=== PATIENT | male | born 1995 | race Caucasian/White ===

== ENCOUNTER 2016-11-11 23:38 | Emergency (ER) | payer MEDICAID ==
[2016-11-12] MEDS ORDERED: HYDROCODONE/ACETAMINOPHEN 5-325 MG 6 TAB/DSPK PO PRN (02:52)
[2016-11-12] MEDS ORDERED: PREDNISONE 20 MG TABLET PO ONE (02:52)
--- NOTE | 2016-11-12 02:58 | ER Document Report ---
ED General - General Chief Complaint: Rash Stated Complaint: RASH Time Seen by Provider: 11/12/16 02:42 Notes: Patient is a 21-year-old male who presents with complaint of a rash. He has had the rash for several months now. Several months ago his doctor started him on prednisone. The rash went away for approximately a month and then came back. It is gradually worsening. He says the rash is tender to touch. Does not itch. He has had no fevers. No joint swelling. No vomiting. No systemic symptoms. Takes no medications. He has no chronic medical problems. He does have an appointment with a prescription benefit specialist in December. TRAVEL OUTSIDE OF THE [place] IN LAST 30 DAYS: No - Related Data Allergies/Adverse Reactions: No Known Allergies Allergy (Unverified 05/27/12 13:50) Past Medical History - Social History Smoking Status: Unknown if Ever Smoked Frequency of alcohol use: None Drug Abuse: None Family History: Reviewed & Not Pertinent - Past Medical History Cardiac Medical History: Denies: Hx Coronary Artery Disease, Hx Heart Attack, Hx Hypertension Pulmonary Medical History: Reports: Hx Asthma - as young child Denies: Hx Bronchitis, Hx COPD, Hx Pneumonia Neurological Medical History: Denies: Hx Cerebrovascular Accident, Hx Seizures Renal/ Medical History: Denies: Hx Peritoneal Dialysis Musculoskeltal Medical History: Denies Hx Arthritis Past Surgical History: Denies: Hx Pacemaker - Immunizations Hx Diphtheria, Pertussis, Tetanus Vaccination: Yes Review of Systems - Review of Systems Notes: My Normal Review Basic REVIEW OF SYSTEMS: CONSTITUTIONAL : Denies fever, chills, or sweats. Denies recent illness. EENT: Denies eye, ear, throat, or mouth pain or symptoms. Denies nasal or sinus congestion. CARDIOVASCULAR: Denies chest pain. RESPIRATORY: Denies cough, cold, or chest congestion. Denies shortness of breath, difficulty breathing, or wheezing. GASTROINTESTINAL: Denies abdominal pain. Denies nausea, vomiting, or diarrhea. Denies constipation. Last BM: MUSCULOSKELETAL: Denies neck or back pain or joint pain or swelling. SKIN: Rash NEUROLOGICAL: Denies altered mental status or loss of consciousness. Denies headache. Denies weakness or paralysis or loss of use of either side. Denies problems with gait or speech. Denies sensory or motor loss. ALL OTHER SYSTEMS REVIEWED AND NEGATIVE. Physical Exam - Vital signs Vitals: Temp Pulse Resp BP Pulse Ox 98.7 F 122 H 16 149/107 H 97 11/12/16 00:03 11/12/16 00:03 11/12/16 00:03 11/12/16 00:03 11/12/16 00:03 - Notes Notes: General Appearance: Well nourished, alert, cooperative, no acute distress, no obvious discomfort. Well appearing. Vitals: reviewed, See vital signs table. Head: no swelling or tenderness to the head Eyes: PERRL, EOMI, Conjuctiva clear Mouth: No decreasd moisture Throat: No tonsillar inflammation, No airway obstruction, No lymphadenopathy Neck: Supple, no neck tenderness, No thyromegaly Lungs: No wheezing, No rales, No rhonci, No accessory muscle use, good air exchange bilaterally. Heart: Normal rate, Regular rythm, No murmur, no rub Abdomen: Normal BS, soft, No rigidity, No abdominal tenderness, No guarding, no rebound, no abdominal masses, no organomegaly Extremities: strength 5/5 in all extremities, good pulses in all extremities, no swelling or tenderness in the extremities, no edema. Skin: Patient has a rash over majority of her body. It does not involve mucous membranes. It does not involve the genitalia. It does involve the extremities , face, and torso. Rash is erythematous papules and macules that have a scaly type appearance. They are completely blanchable. They are slightly tender to palpation. Neuro: speech clear, oriented x 3, normal affect, responds appropriately to questions. Course - Vital Signs Vital signs: Temp Pulse Resp BP Pulse Ox 98.7 F 119 H 16 152/95 H 98 11/12/16 00:03 11/12/16 00:04 11/12/16 00:03 11/12/16 00:04 11/12/16 00:04 - EKG Interpretation by Me Additional EKG results interpreted by me: 11/12/16 02:58 EKG is reviewed and interpreted by me. EKG shows normal sinus rhythm with rate of [address] segment elevation or depression. No ischemic T-wave inversions. NH interval, QRS duration, QTc intervals are within normal range. No old EKG available for comparison. - Transfer of Care Notes: I do not know the exact cause of the patient's rash. The rash is completely blanchable. Response to steroids per his history. He does have upcoming appointment with the prescription benefit specialist. I will place him back on tapering steroids. He has no systemic symptoms. I feel he is safe to be discharged home. I encouraged him return to ER immediately if he develops any systemic symptoms, fevers, pain, abdominal pain, vomiting, or if he feels unwell. Patient agrees with plan will be discharged home. Also encouraged him to call other dermatology offices to see if they can get him in sooner. I did give him the numbers to the dermatology offices in [place]. 11/12/16 03:52 Dictation of this chart was performed using voice recognition software; therefore, there may be some unintended grammatical errors. Discharge - Discharge Clinical Impression: Rash Condition: Good Disposition: HOME, SELF-CARE Instructions: Oral Narcotic Medication ([facility]) Additional Instructions: Please take the medications as prescribed. Please call other dermatologists such as ones in towns nearby to see if they can get you in sooner. Please return to the ER immediately if you develop fevers, joints swelling, difficulty breathing, vomiting, or feel unwell. Dermatologists in [place]: Dr. Nicholas: [phone] [facility]: [phone] [facility]: [phone] Prescriptions: Prednisone 10 mg PO ASDIR #42 tablet
[2016-11-12 04:47] VITALS: BP 132/96
== END 2016-11-12 04:47 | disposition home or self-care (01) ==
LOC: ER 23:38
DX: R21 Rash and other nonspecific skin eruption (principal)
CPT/HCPCS: 99282; J7512

== ENCOUNTER 2018-06-28 15:25 | Emergency (ER) | payer SELFPAY ==
[2018-06-28] MEDS ORDERED: NORMAL SALINE 1000 ML 1,000 ML IV ONE (15:54)
--- NOTE | 2018-06-28 15:59 | ER Document Report ---
ED General - General Stated Complaint: SEIZURE TRAVEL OUTSIDE OF THE [place] IN LAST 30 DAYS: No - HPI Notes: Patient is a 22-year-old male with a history of seizure disorder emergency department after having 2 seizures while at work today. Patient states that he does not take any medicines for seizures and does not believe in any medications. Patient does smoke marijuana on occasion. He did have a beer and some whiskey last evening. Patient states he has otherwise been able to eat and drink without any difficulties. He is urinating normally and having normal bowel movements. Patient seizures were witnessed the first 1 by a coworker and the second by his significant other. Significant other states that his seizures have been the same as before and he does have some tonic-clonic behavior with him. He was assisted to the ground both times. He did have a brief postictal phase for a few minutes where he was confused, but states that he feels back to normal and has no other concerns or complaints. Denies any drug allergies. Patient states that his seizures started a couple years ago when he was doing LSD, but has not been using any miscellaneous drugs aside from marijuana. Patient states that his last seizure was about 8 months ago. No other concerns or complaints. Denies any headache, fever, head injury, neck pain, changes in vision/speech/hearing, URI, sore throat, chest pain, palpitations, syncope, cough, shortness of breath, wheeze, dyspnea, abdominal pain, nausea/vomiting/diarrhea, urinary retention, dysuria, hematuria, loss of control of bowel or bladder, numbness/tingling, saddle anesthesia, muscle paralysis/weakness, or rash. - Related Data Allergies/Adverse Reactions: No Known Allergies Allergy (Unverified 05/27/12 13:50) Past Medical History - Social History Smoking Status: Current Every Day Smoker Chew tobacco use (# tins/day): No Frequency of alcohol use: Heavy Drug Abuse: Marijuana Family History: Reviewed & Not Pertinent Patient has suicidal ideation: No Patient has homicidal ideation: No - Past Medical History Cardiac Medical History: Denies: Hx Coronary Artery Disease, Hx Heart Attack, Hx Hypertension Pulmonary Medical History: Reports: Hx Asthma - as young child Denies: Hx Bronchitis, Hx COPD, Hx Pneumonia Neurological Medical History: Denies: Hx Cerebrovascular Accident, Hx Seizures Renal/ Medical History: Denies: Hx Peritoneal Dialysis Musculoskeletal Medical History: Denies Hx Arthritis Past Surgical History: Denies: Hx Pacemaker - Immunizations Hx Diphtheria, Pertussis, Tetanus Vaccination: Yes Review of Systems - Review of Systems -: Yes All other systems reviewed and negative Physical Exam - Vital signs Vitals: Temp BP Pulse Ox 98.0 F 111/75 98 06/28/18 15:28 06/28/18 15:28 06/28/18 15:28 - Notes Notes: PHYSICAL EXAMINATION: GENERAL: Well-appearing, well-nourished and in no acute distress. A&Ox4. Answers questions appropriately. HEAD: Atraumatic, normocephalic. Non-tender. EYES: Pupils equal round and reactive to light, extraocular movements intact, sclera anicteric, conjunctiva are normal. No nystagmus. vis devine intact. ENT: EAC clear b/l. TM's intact b/l without erythema, fluid, or perforation. Nares patent and without discharge. oropharynx clear without exudates. No tonsilar hypertrophy or erythema. Moist mucous membranes. No sinus tenderness. NECK: Normal range of motion, supple without lymphadenopathy. No rigidity/meningismus. No midline tenderness. LUNGS: Breath sounds clear to auscultation bilaterally and equal. No wheezes rales or rhonchi. HEART: Regular rate and rhythm without murmurs, rubs, gallops. ABDOMEN: Soft, nontender, nondistended abdomen. No guarding, no rebound. Normal bowel sounds present. No CVA tenderness bilaterally. Musculoskeletal: Ext's b/l: FROM to passive/active. Strength 5+/5. No deficits noted. No bony tenderness of extremities. Extremities: No cyanosis, clubbing, or edema b/l. Peripheral pulses 2+. Capillary refill less than 2 seconds. NEUROLOGICAL: NIH 0. GCS 15. Cranial nerves grossly intact. Normal speech. Normal sensory, motor exams. Reflexes 2+ b/l. CECILY's negative. Pronator drift negative. Heel/wright, finger/nose wnl. PSYCH: Normal mood, normal affect. SKIN: Warm, Dry, normal turgor, no rashes or lesions noted. Course - Re-evaluation Re-evalutation: 06/28/18 17:18 Patient is an afebrile, well-hydrated, 20-year-old male who presents to the emergency department with seizure and known seizure disorder who is at baseline and not postictal. Vitals are acceptable without significant tachycardia, tachypnea, or hypoxia. PE is otherwise unremarkable for any focal neurological deficits. Patient was given fluids. CBC, CMP, magnesium are acceptable. Patient has been tolerating p.o. is nontoxic-appearing. Patient has refused any medicines as he is homeopathic. He has not had any recurrence of seizure throughout his stay. No further labs or imaging warranted at this time. Low suspicion for any acute intracranial pathology, sepsis, meningitis, severe dehydration, respiratory compromise, or other systemic emergent condition at this time. Patient is aware that condition can change from initial presentation and he needs to monitor symptoms closely and seek medical attention with any acute changes. Recheck with a PCM/neurologist in 3-5 days. Return to the ED with any other worsening/concerning symptoms as reviewed. Patient is in agreement. - Vital Signs Vital signs: Temp Pulse Resp BP Pulse Ox 98.0 F 111/75 98 06/28/18 15:28 06/28/18 15:28 06/28/18 15:28 - Laboratory Result Diagrams: 06/28/18 16:19 06/28/18 16:19 Laboratory results interpreted by me: 06/28/18 16:19 Sodium 148.5 H Glucose 138 H Magnesium 2.7 H Albumin 5.3 H Discharge - Discharge Clinical Impression: Seizure Condition: Stable Disposition: HOME, SELF-CARE Instructions: Seizure, Known Epileptic ([facility]) Additional Instructions: Rest, Ice/cool compress Tylenol/ibuprofen as needed Light stretches daily Avoid alcohol intake Strength exercises as able F/u with your PCP/neurology in 3-5 days or as able Return to the ED with any worsening symptoms and/or development of fever, headache, changes in behavior/mentation/vision/speech, chest pain, palpitations, syncope, shortness of breath, trouble breathing, abdominal pain, n/v/d, blood in stool/urine, loss of control of bowel/bladder, urinary retention, muscle weakness/paralysis, saddle anesthesia, numbness/tingling, or other worsening symptoms that are concerning to you. Forms: Smoking Cessation Education Referrals: CHI BARROS MD [NO LOCAL MD] - Follow up as needed
[2018-06-28 16:45] LABS: ABSOLUTE EOSINOPHILS # (AUTO) 0.1 10^3/uL (0.0-0.6); ABSOLUTE LYMPHOCYTES (AUTO) 2.4 10^3/uL (0.5-4.7); ABSOLUTE MONOCYTES (AUTO) 0.3 10^3/uL (0.1-1.4); ABSOLUTE NEUT (AUTO) 5.4 10^3/uL (1.7-8.2); BASOPHILS % (AUTO) 0.5 % (0-2); EOSINOPHILS % (AUTO) 1.3 % (0-6); HEMATOCRIT 47.7 % (37.9-51.0); HEMOGLOBIN 16.5 g/dL (13.5-17.0); LYMPHOCYTES % (AUTO) 29.2 % (13-45); MEAN CORPUSCULAR HEMOGLOBIN 32.6 pg (27.0-33.4); MEAN CORPUSCULAR HGB CONC 34.7 g/dL (32.0-36.0); MEAN CORPUSCULAR VOLUME 94 fl (80-97); MONOCYTES % (AUTO) 3.5 % (3-13); PLATELET COUNT 372 10^3/uL (150-450); RED BLOOD COUNT 5.08 10^6/uL (4.35-5.55); RED CELL DISTRIBUTION WIDTH 12.9 % (11.5-14.0); SEGMENTED NEUTROPHILS % (AUTO) 65.5 % (42-78); TOTAL CELLS COUNTED % (AUTO) 100 %; WHITE BLOOD COUNT 8.2 10^3/uL (4.0-10.5)
[2018-06-28 16:59] LABS: ALANINE AMINOTRANSFERASE 25 U/L (21-72); ALBUMIN 5.3 g/dL (3.5-5.0); ALKALINE PHOSPHATASE 108 U/L (38-126); ANION GAP 12 (5-19); ASPARTATE AMINO TRANSFERASE 26 U/L (17-59); BILIRUBIN,DIRECT 0.3 mg/dL (0.0-0.4); BILIRUBIN,TOTAL 0.3 mg/dL (0.2-1.3); BLOOD UREA NITROGEN 9 mg/dL (7-20); CALCIUM 9.9 mg/dL (8.4-10.2); CARBON DIOXIDE 30 mmol/L (22-30); CHLORIDE 107 mmol/L (98-107); GLUCOSE 138 mg/dL (75-110); POTASSIUM 4.2 mmol/L (3.6-5.0); SODIUM 148.5 mmol/L (137-145); TOTAL PROTEIN 8.1 g/dL (6.3-8.2)
[2018-06-28 17:42] VITALS: BP 121/94
== END 2018-06-28 17:42 | disposition home or self-care (01) ==
LOC: ER 15:25
DX: G40.909 Epilepsy, unspecified, not intractable, without status epilepticus (principal); F17.200 Nicotine dependence, unspecified, uncomplicated
CPT/HCPCS: 99284; 96360; 36415; 83735; 85025; 80053; J7030

== ENCOUNTER 2019-08-13 14:01 | Emergency (ER) | payer SELFPAY ==
--- NOTE | 2019-08-13 14:37 | ER Document Report ---
ED Medical Screen (RME) - General Chief Complaint: Psych Problem Stated Complaint: PSYCH EVAL Time Seen by Provider: 08/13/19 14:34 Information source: Patient TRAVEL OUTSIDE OF THE [place] IN LAST 30 DAYS: No - HPI Onset: Other - This is a 24-year-old male who presented to the emergency room today for suicidal ideation requesting evaluation. He does not have a plan. - Related Data Allergies/Adverse Reactions: No Known Allergies Allergy (Unverified 05/27/12 13:50) Past Medical History - Past Medical History Cardiac Medical History: Denies: Hx Coronary Artery Disease, Hx Heart Attack, Hx Hypertension Pulmonary Medical History: Reports: Hx Asthma - as young child Denies: Hx Bronchitis, Hx COPD, Hx Pneumonia Neurological Medical History: Denies: Hx Cerebrovascular Accident, Hx Seizures Renal/ Medical History: Denies: Hx Peritoneal Dialysis Musculoskeltal Medical History: Denies Hx Arthritis Past Surgical History: Denies: Hx Pacemaker - Immunizations Hx Diphtheria, Pertussis, Tetanus Vaccination: Yes Physical Exam - Vital signs Vitals: Temp Pulse Resp BP Pulse Ox 97.9 F 93 20 149/72 H 99 08/13/19 14:11 08/13/19 14:11 08/13/19 14:11 08/13/19 14:11 08/13/19 14:11 - HEENT Head: Normocephalic, Atraumatic Eyes: Normal Cornea: Normal Pupils: PERRL Course - Vital Signs Vital signs: Temp Pulse Resp BP Pulse Ox 97.9 F 93 20 149/72 H 99 08/13/19 14:11 08/13/19 14:11 08/13/19 14:11 08/13/19 14:11 08/13/19 14:11
[2019-08-13 15:22] LABS: HEMATOCRIT 45.3 % (37.9-51.0); HEMOGLOBIN 15.9 g/dL (13.5-17.0); MEAN CORPUSCULAR HEMOGLOBIN 33.2 pg (27.0-33.4); MEAN CORPUSCULAR HGB CONC 35.1 g/dL (32.0-36.0); MEAN CORPUSCULAR VOLUME 95 fl (80-97); PLATELET COUNT 306 10^3/uL (150-450); RED BLOOD COUNT 4.78 10^6/uL (4.35-5.55); WHITE BLOOD COUNT 10.5 10^3/uL (4.0-10.5)
[2019-08-13 15:35] LABS: APPEARANCE,URINE CLEAR; BILIRUBIN,URINE NEGATIVE (NEGATIVE); COLOR,URINE STRAW; GLUCOSE, URINE NEGATIVE (NEGATIVE); KETONES,URINE NEGATIVE (NEGATIVE); LEUKOCYTE ESTERASE,URINE NEGATIVE (NEGATIVE); NITRITE,URINE NEGATIVE (NEGATIVE); PROTEIN,URINE NEGATIVE (NEGATIVE); URINE SPECIFIC GRAVITY 1.004; UROBILINOGEN,URINE NEGATIVE mg/dL (<2.0)
[2019-08-13 15:42] LABS: ABSOLUTE LYMPHOCYTES# (MANUAL) 5.3 10^3/uL (0.5-4.7); ABSOLUTE MONOCYTES # (MANUAL) 0.2 10^3/uL (0.1-1.4); BASOPHILS % (MANUAL) 0 % (0-2); EOSINOPHILS % (MANUAL) 0 % (0-6); LYMPHOCYTES % (MANUAL) 47 % (13-45); MONOCYTES % (MANUAL) 2 % (3-13); SEGMENTED NEUTROPHILS % (MAN) 48 % (42-78); TOTAL CELLS COUNTED 100
[2019-08-13 15:44] LABS: RBC MORPHOLOGY COMMENT NORMO-CYTIC/CHROMIC; URINE AMPHETAMINES SCREEN NEGATIVE; URINE BARBITURATES SCREEN NEGATIVE; URINE BENZODIAZEPINES SCREEN NEGATIVE; URINE COCAINE SCREEN NEGATIVE; URINE MARIJUANA (THC) SCREEN NEGATIVE; URINE METHADONE SCREEN NEGATIVE; URINE PHENCYCLIDINE SCREEN NEGATIVE
[2019-08-13 15:45] LABS: PLATELET COMMENT ADEQUATE
[2019-08-13 16:12] LABS: ALBUMIN 4.6 g/dL (3.5-5.0); ALKALINE PHOSPHATASE 156 U/L (38-126); ANION GAP 13 (5-19); ASPARTATE AMINO TRANSFERASE 96 U/L (17-59); BILIRUBIN,TOTAL 0.4 mg/dL (0.2-1.3); BLOOD UREA NITROGEN 6 mg/dL (7-20); CALCIUM 8.9 mg/dL (8.4-10.2); CARBON DIOXIDE 25 mmol/L (22-30); CHLORIDE 106 mmol/L (98-107); GLUCOSE 93 mg/dL (75-110); TOTAL PROTEIN 7.2 g/dL (6.3-8.2)
[2019-08-13 16:14] LABS: ACETAMINOPHEN < 10 ug/mL (10-30); SALICYLATE < 1.0 mg/dL (2.0-20.0)
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
[2019-08-13 16:24] LABS: ALCOHOL 370 mg/dL (NONE DETECTED)
--- NOTE | 2019-08-13 18:15 | EKG REPORT ---
SEVERITY:- NORMAL ECG - SINUS RHYTHM : Confirmed by: Atul De León 13-Aug-2019 18:13:47
[2019-08-13] MEDS: NORMAL SALINE 1000 ML 1,000 ML IV PRN ×2 (18:21→18:22)
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
[2019-08-13 23:13] VITALS: BP 134/80
== END 2019-08-13 23:09 | disposition home or self-care (01) ==
LOC: ER 14:01
DX: F10.10 Alcohol abuse, uncomplicated (principal); F32.9 Major depressive disorder, single episode, unspecified; R45.851 Suicidal ideations; J45.909 Unspecified asthma, uncomplicated
CPT/HCPCS: 93005; 99285; 96360; 36415; 80307 ×4; 85025; 80053; 81001; 93010; J7030